=== PATIENT | female | born 1980 | race Caucasian/White ===

== ENCOUNTER 2018-04-11 18:26 | Emergency (ER) | payer BC ==
[2018-04-11] MEDS ORDERED: SODIUM CHLORIDE 1,000 ML IV STA (18:40)
--- NOTE | 2018-04-11 18:43 | PDOC ---
History of Present Illness - General History Source: Patient, Old Records Exam Limitations: No Limitations - History of Present Illness Initial Comments: 04/11/18 18:46 The patient is a 38 year old female with a past medical history of ovarian cysts and asthma, who presents to the emergency department with right lower quadrant abdominal pain for 1 day. The patient reports that she woke up this morning and felt a dull pain. The patients pain progressively worsened throughout the day. She describes her pain as sharp and constant with untriggered exacerbating episodes. She endorses associated nausea. She denies fever, chills, diarrhea, and vomiting. LMP: 10 days ago PMD: Otf Raya <Gordo Colindres - Last Filed: 04/11/18 18:46> - General History Source: Patient Exam Limitations: No Limitations <Ivan Alford - Last Filed: 04/17/18 07:12> - General Chief Complaint: Pain, Acute Stated Complaint: ABD PAIN Time Seen by Provider: 04/11/18 18:28 Past History <Gordo Colindres - Last Filed: 04/11/18 18:46> - Past Medical History Asthma: Yes CVA: No COPD: No Other medical history: DENIES - Suicide/Smoking/Psychosocial Hx Smoking History: Never smoked Hx Alcohol Use: Yes Drug/Substance Use Hx: No Substance Use Type: Alcohol <Ivan Alford - Last Filed: 04/17/18 07:12> - Past Medical History Allergies/Adverse Reactions: Allergies Allergy/AdvReac Type Severity Reaction Status Date / Time Penicillins Allergy Verified 04/11/18 18:27 Home Medications: Ambulatory Orders NK [No Known Home Medication] 04/11/18 Review of Systems - Review of Systems Comments:: 04/11/18 18:47 GENERAL/CONSTITUTIONAL: No fever or chills. No weakness. HEAD, EYES, EARS, NOSE AND THROAT: No change in vision. No ear pain or discharge. No sore throat. CARDIOVASCULAR: No chest pain or shortness of breath. RESPIRATORY: No cough, wheezing, or hemoptysis. GASTROINTESTINAL: (+) nausea, RLQ pain. No vomiting, diarrhea or constipation. GENITOURINARY: No dysuria, frequency, or change in urination. MUSCULOSKELETAL: No joint or muscle swelling or pain. No neck or back pain. SKIN: No rash NEUROLOGIC: No headache, vertigo, loss of consciousness, or change in strength/ sensation. ENDOCRINE: No increased thirst. No abnormal weight change. HEMATOLOGIC/LYMPHATIC: No anemia, easy bleeding, or history of blood clots. ALLERGIC/IMMUNOLOGIC: No hives or skin allergy. <Gordo Colindres - Last Filed: 04/11/18 18:46> *Physical Exam - Vital Signs Last Vital Signs Temp Pulse Resp BP Pulse Ox 98.8 F 83 16 119/81 99 04/11/18 18:27 04/11/18 18:27 04/11/18 18:27 04/11/18 18:27 04/11/18 18:27 - Physical Exam Comments: 04/11/18 18:47 GENERAL: Awake, alert, and fully oriented, in no acute distress HEAD: No signs of trauma EYES: PERRLA, EOMI, sclera anicteric, conjunctiva clear ENT: Auricles normal inspection, hearing grossly normal, nares patent, oropharynx clear without exudates. Moist mucosa NECK: Normal ROM, supple, no lymphadenopathy, JVD, or masses LUNGS: Breath sounds equal, clear to auscultation bilaterally. No wheezes, and no crackles HEART: Regular rate and rhythm, normal S1 and S2, no murmurs, rubs or gallops ABDOMEN: (+) Psoas signs negative. Tenderness to mcburney's point. Soft, No guarding, no rebound. No masses EXTREMITIES: Normal range of motion, no edema. No clubbing or cyanosis. No cords, erythema, or tenderness NEUROLOGICAL: Cranial nerves II through XII grossly intact. Normal speech, normal gait SKIN: Warm, Dry, normal turgor, no rashes or lesions noted. <Gordo Colindres - Last Filed: 04/11/18 18:46> - Vital Signs Last Vital Signs Temp Pulse Resp BP Pulse Ox 98.8 F 83 16 119/81 99 04/11/18 18:27 04/11/18 18:27 04/11/18 18:27 04/11/18 18:27 04/11/18 18:27 <Ivan Alford - Last Filed: 04/17/18 07:12> ED Treatment Course - LABORATORY CBC & Chemistry Diagram: 04/11/18 19:01 04/11/18 19:01 - RADIOLOGY Radiology Studies Ordered: Category Date Time Status ABDOMEN & PELVIS CT WITH CONTR [CT] Stat CT Scan 04/11/18 18:40 Ordered <Ivan Alford - Last Filed: 04/17/18 07:12> Medical Decision Making - Medical Decision Making 04/11/18 18:41 A portion of this note was documented by scribe services under my direction. I have reviewed the details of the note, within reason, and agree with the documentation with the following case summary and management plan written by me. Patient treated in the ED. Nursing notes are reviewed and incorporated into the medical decision-making. Vital signs reviewed. Peripheral IV access obtained by the nurse, laboratory studies are drawn and sent, reviewed and interpreted by myself. Vital Signs Temp Pulse Resp BP Pulse Ox 98.8 F 83 16 119/81 99 04/11/18 18:27 04/11/18 18:27 04/11/18 18:27 04/11/18 18:27 04/11/18 18:27 38-year-old female with past medical history of asthma, ovarian cysts presents with right lower quadrant pain since this morning. Patient reported that she felt this gradual onset of right lower quadrant pain with nausea. Stated she had no appetite but denies fevers, vomiting, dysuria, constipation, diarrhea. She reports she still has her appendix. States that this feels different from her ovarian cyst rupture. Reports the the pain is a moderate persistent pain and declines any pain medication at this time. Differential includes acute appendicitis versus ovarian cyst rupture. I have less suspicion for ovarian torsion. We'll obtain blood work including a CAT scan abdomen pelvis. Patient signed out to oncoming ED attending, Dr. Shore for further management and disposition. <Ivan Alford - Last Filed: 04/17/18 07:12> *DC/Admit/Observation/Transfer - Attestations Scribe Attestion: 04/11/18 18:47 Documentation prepared by Gordo Colindres, acting as medical review coordinator for Ivan Alford MD. <Gordo Colindres - Last Filed: 04/11/18 18:46> <Ivan Alford - Last Filed: 04/17/18 07:12> Diagnosis at time of Disposition: Colitis - Discharge Dispostion Disposition: HOME Condition at time of disposition: Stable - Referrals Referrals: Jose Angel Cochran MD [Staff Physician] - - Patient Instructions Printed Discharge Instructions: DI for Colitis Additional Instructions: Light diet/plenty of water Local warmth to right lower abdomen Ibuprofen/naproxen/acetaminophen as needed for pain Take ibuprofen/naproxen with food Return to ER if you have severe pain/fever/vomiting/severe diarrhea Follow-up with Dr. Cochran(office assistance) or your general medical doctor when office opens on April 15
[2018-04-11 18:47] VITALS: BP 119/81; PULSE 83; TEMP 98.8; BMI 25.4
[2018-04-11 19:11] LABS: PH,URINE 6.5 (4.5-8); URINE APPEARANCE Clear; URINE BILIRUBIN Negative (NEGATIVE); URINE GLUCOSE (UA) Negative (NEGATIVE); URINE KETONE Negative (NEGATIVE); URINE NITRITE Negative (NEGATIVE); URINE PROTEIN Negative (NEGATIVE); URINE UROBILINOGEN 0.2 (0.2-1.0)
[2018-04-11 19:14] LABS: URINE COLOR YELLOW; URINE LEUK ESTERASE 1+ (NEGATIVE)
[2018-04-11 19:17] LABS: BASO % 0.7 % (0-2.0); HEMATOCRIT 41.2 % (32.4-45.2); HEMOGLOBIN 13.8 GM/dl (10.7-15.3); LYMPH % 24.8 % (8-40); MCH 29.6 pg (25.7-33.7); MCHC 33.6 g/dl (32.0-36.0); MEAN CELL VOLUME 88.3 fl (80-96); MEAN PLT VOLUME 8.9 fl (7.5-11.1); MONO % 7.5 % (3.8-10.2); PLATELET COUNT 316 K/MM3 (134-434); RBC 4.67 M/mm3 (3.60-5.2); RDW 11.8 % (11.6-15.6); WHITE BLOOD COUNT 11.2 K/mm3 (4.0-10.8)
[2018-04-11 19:19] LABS: HCG,QUALITATIVE URINE Negative
[2018-04-11 19:31] LABS: ALBUMIN 4.4 g/dl (3.5-5.0); ALK PHOS 35 U/L (32-92); ANION GAP 5 (8-16); BILIRUBIN,TOTAL 0.8 mg/dl (0.2-1.0); BLOOD UREA NITROGEN 15 mg/dl (7-18); CALCIUM 9.3 mg/dl (8.4-10.2); CHLORIDE 103 mmol/L (98-107); CO2 26 mmol/L (22-28); CREATININE 0.8 mg/dl (0.6-1.3); GLUCOSE,RANDOM 100 mg/dl (74-106); POTASSIUM 4.2 mmol/L (3.5-5.1); SGOT/AST 33 U/L (10-42); SGPT/ALT 24 U/L (10-40); SODIUM 134 mmol/L (136-145); TOT PROT 7.4 g/dl (6.4-8.3)
--- NOTE | 2018-04-11 21:25 | PDOC ---
*Physical Exam - Vital Signs Last Vital Signs Temp Pulse Resp BP Pulse Ox 98.8 F 83 16 119/81 99 04/11/18 18:27 04/11/18 18:27 04/11/18 18:27 04/11/18 18:27 04/11/18 18:27 ED Treatment Course - LABORATORY CBC & Chemistry Diagram: 04/11/18 19:01 04/11/18 19:01 - ADDITIONAL ORDERS Additional order review: Laboratory Results 04/11/18 04/11/18 19:01 19:01 Sodium 134 L Potassium 4.2 Chloride 103 Carbon Dioxide 26 Anion Gap 5 L BUN 15 Creatinine 0.8 Creat Clearance w eGFR > 60 Random Glucose 100 Calcium 9.3 Total Bilirubin 0.8 AST 33 ALT 24 Alkaline Phosphatase 35 Total Protein 7.4 Albumin 4.4 Urine Color Yellow Urine Appearance Clear Urine pH 6.5 Ur Specific Clemons 1.015 Urine Protein Negative Urine Glucose (UA) Negative Urine Ketones Negative Urine Blood Negative Urine Nitrite Negative Urine Bilirubin Negative Urine Urobilinogen 0.2 Ur Leukocyte Esterase 1+ H Urine HCG, Qual Negative 04/11/18 19:01 RBC 4.67 MCV 88.3 MCHC 33.6 RDW 11.8 MPV 8.9 Neutrophils % 66.0 Lymphocytes % 24.8 Monocytes % 7.5 Eosinophils % 1.0 Basophils % 0.7 - Medications Given in the ED: ED Medications Discontinued Medications Generic Name Dose Route Start Last Admin Trade Name Freq PRN Reason Stop Dose Admin Sodium Chloride 1,000 mls @ 1,000 mls/hr 04/11/18 18:40 04/11/18 19:07 Normal Saline - IV 04/11/18 19:39 1,000 mls/hr ASDIR STA Administration Progress Note - Progress Note Progress Note: Care of this patient received from Dr. Alford. Abdominal/pelvic CT performed to evaluate for right lower quadrant abdominal pain. CT interpreted by of the radiology staff: Appendix is visualized and is normal. There is a small to moderate-sized right ovarian cyst without evidence of rupture. Of note is asymmetric wall thickening in the ascending colon consistent with inflammatory or infectious colitis. However, neoplastic process is not ruled out. Results discussed with the patient. She currently has some residual pain in the right lower quadrant and should be given Toradol 30 mg IV now. She has been advised to follow a light diet and drink plenty of fluids. She needs gastroenterology follow-up: Although she has a general medical doctor she does not have a helicopter technician. She does not need to have a referral from her screen handler ,so she was given contact information for Dr. Jose Angel Cochran. She should call the office after the holiday weekend (i.e. April 15) to arrange follow-up appointment. Meanwhile, if she has worsening pain, vomiting, fever or severe diarrhea, she should return to the emergency room. *DC/Admit/Observation/Transfer Diagnosis at time of Disposition: Colitis - Discharge Dispostion Disposition: HOME Condition at time of disposition: Stable - Referrals Referrals: Jose Angel Cochran MD [Staff Physician] - - Patient Instructions Printed Discharge Instructions: DI for Colitis Additional Instructions: Light diet/plenty of water Local warmth to right lower abdomen Ibuprofen/naproxen/acetaminophen as needed for pain Take ibuprofen/naproxen with food Return to ER if you have severe pain/fever/vomiting/severe diarrhea Follow-up with Dr. Cochran(helicopter technician) or your general medical doctor when office opens on April 15 - Post Discharge Activity
[2018-04-11] MEDS ORDERED: KETOROLAC TROMETHAMINE 30 MG/1 ML VIAL IVPUSH ONE (22:20)
[2018-04-11] MEDS ORDERED: KETOROLAC TROMETHAMINE 30 MG/1 ML VIAL ONE (22:24)
[2018-04-11 23:01] LABS: EPI CELLS FEW /HPF; URINE BACTERIA FEW /hpf (NEGATIVE); URINE RBC 0-2 /hpf (0-3)
== END 2018-04-11 22:31 | disposition home or self-care (01) ==
LOC: FER 18:26
PROC: 3E0333Z Introduction of Anti-inflammatory into Peripheral Vein, Percutaneous Approach (ICD-10-PCS; principal; 2018-04-11)
PROC: 3E0337Z Introduction of Electrolytic and Water Balance Substance into Peripheral Vein, Percutaneous Approach (ICD-10-PCS; 2018-04-11)
DX: K52.9 Noninfective gastroenteritis and colitis, unspecified (principal); J45.909 Unspecified asthma, uncomplicated
CPT/HCPCS: 36415; 74177-TC; 80053; 81003; 81015; 84703; 85025; 87086; 99283-25; J7030

== ENCOUNTER 2021-02-27 09:45 | Day surgery (SDC) | payer BC ==
[2021-02-24 15:57] VITALS: BMI 33.4
[2021-02-27 10:38] VITALS: TEMP 98.6
[2021-02-27 12:05] VITALS: BP 90/50; PULSE 60
== END 2021-02-27 12:10 | disposition home or self-care (01) ==
LOC: FASU-ENDO 09:45
PROVIDERS: ATTEND Internal Medicine Gastroenterology
PROC: 0DJD8ZZ Inspection of Lower Intestinal Tract, Via Natural or Artificial Opening Endoscopic (ICD-10-PCS; principal; 2021-02-27 11:13)
DX: Z12.11 Encounter for screening for malignant neoplasm of colon (principal); Z83.71 Family history of colonic polyps; K59.00 Constipation, unspecified
CPT/HCPCS: 84703